=== PATIENT | female | born 1965 | race Two or more races ===

== ENCOUNTER 2016-11-21 21:34 | Emergency (ER) | payer OTHER ==
[~2016-11-21] VITALS: Ht 172.7 cm; Wt 90.7 kg
[2016-11-21] MEDS ORDERED: MORPHINE SULF INJ 2 MG/ML SYRINGE 1ML IV ONE (22:30)
[2016-11-21] MEDS ORDERED: ONDANSETRON HCL 4 MG/2 ML VIAL IV ONE (22:30)
[2016-11-21] MEDS ORDERED: NIFEdipine 10 MG CAP PO ONE (22:45)
[2016-11-21 22:57] LABS: Basophils # (auto) 0 uL; Basophils % (auto) 0.5 % (0.0-2.0); Eosinophils # (auto) 0.1 uL; Eosinophils % (auto) 1.4 % (0.0-7.0); Hemoglobin 15.1 g/dL (12.2-16.2); Lymphocytes # (auto) 2.4 uL; Lymphocytes % (auto) 26.2 % (10.0-50.0); Mean Corpuscular Hemoglobin 28.7 pg (28.0-32.0); Mean Corpuscular Hgb Conc. 34.3 g/dL (32.0-36.0); Mean Corpuscular Volume 83.8 fL (80.0-100.0); Mean Platelet Volume 10.8 fL (7.4-10.4); Monocytes # (auto) 0.5 uL; Monocytes % (auto) 5.1 % (0.0-12.0); Neutrophils % (auto) 66.8 % (37.0-80.0); Platelet Count (auto) 227 10^3/uL (140-450)
[2016-11-21 23:07] LABS: INR 0.94 (0.9-1.15); Partial Thromboplastin Time 26.9 sec (22.64-33.71); Prothrombin Time 10.2 sec (9.37-12.3)
[2016-11-21 23:08] LABS: Albumin 3.6 g/dL (3.4-5.0); Anion Gap 12 (5-15); Aspartate Aminotransferase 34 U/L (15-37); BUN/Creatinine Ratio 17.2; Blood Urea Nitrogen 21 mg/dL (7-18); Calcium 8.8 mg/dL (8.5-10.1); Carbon Dioxide 23 mmol/L (21-32); Chloride 102 mmol/L (98-107); GFR African American 60 mL/min; GFR Non-African American 49 mL/min; Glucose 358 mg/dL (74-106); Potassium 4.2 mmol/L (3.5-5.1); Sodium 137 mmol/L (136-145)
[2016-11-21 23:12] LABS: Alkaline Phosphatase 120 U/L (45-117); Bilirubin, Total 0.4 mg/dL (0.2-1.0)
[2016-11-21 23:15] LABS: Temperature: 22.9 C (20.0-25.0)
[2016-11-22] MEDS ORDERED: SODIUM CHLORIDE 0.9% 1,000 ML IV ONE (00:15)
[2016-11-22 01:54] VITALS: BP 149/91
== END 2016-11-22 01:56 | disposition home or self-care (01) ==
LOC: EDBD 21:34 → ER 21:39
DX: R56.9 Unspecified convulsions (principal); R55 Syncope and collapse; E86.0 Dehydration; E11.9 Type 2 diabetes mellitus without complications; E78.5 Hyperlipidemia, unspecified; I10 Essential (primary) hypertension; Z98.51 Tubal ligation status; R06.02 Shortness of breath
CPT/HCPCS: 36415; 70450; 71010; 72125; 80053; 83735; 83880; 84484; 85025; 85379; 85610; 85730; 93005; 96361; 96374; 99285; J2405; J7030

== ENCOUNTER 2019-12-01 09:40 | Emergency (ER) | payer OTHER ==
[~2019-12-01] VITALS: Ht 152.4 cm; Wt 72.6 kg
[~2019-12-01 09:40] MED LIST: ASPI81CH43 PO; AZIT250T8 PO; INSLANTI SC; INSLISPI SC; ISOS20TA56 PO; LISI40TA PO; LOSA-69 PO; MECL12.554 PO; METF-371 PO; METO-169 PO; MULT-228 PO; SIMV-8 PO
[2019-12-01] MEDS ORDERED: cloNIDine HCL 0.1 MG TAB ONE (09:51)
[2019-12-01] MEDS ORDERED: cloNIDine HCL 0.1 MG TAB PO ONE (10:00)
[2019-12-01] MEDS ORDERED: ACETAMINOPHEN 500 MG TAB PO ONE (11:15)
[2019-12-01 11:20] VITALS: BP 198/102
== END 2019-12-01 11:43 | disposition home or self-care (01) ==
LOC: ER 09:40
DX: S92.511A Displaced fracture of proximal phalanx of right lesser toe(s), initial encounter for closed fracture (principal); S76.011A Strain of muscle, fascia and tendon of right hip, initial encounter; S80.211A Abrasion, right knee, initial encounter; I10 Essential (primary) hypertension; E78.5 Hyperlipidemia, unspecified; Z98.51 Tubal ligation status; W01.0XXA Fall on same level from slipping, tripping and stumbling without subsequent striking against object, initial encounter; Y93.89 Activity, other specified; Y92.89 Other specified places as the place of occurrence of the external cause; Y99.8 Other external cause status
CPT/HCPCS: 73502; 73630

== ENCOUNTER 2022-07-14 17:29 | Inpatient (IN) | payer OTHER ==
[~2022-07-14] VITALS: Ht 170.2 cm; Wt 87.6 kg
[~2022-07-14 17:29] MED LIST changes: +ISOS20TA5 PO; -ISOS20TA56 PO; -LISI40TA PO; +LISI40TA11 PO; +MECL12.514 PO; -MECL12.554 PO; -METO-169 PO; +METO-289 PO
[2022-07-14] MEDS ORDERED: CLOPIDOGREL BISULFATE 75 MG TAB PO ONE (19:15)
[2022-07-14 20:02] LABS: Basophils # (auto) 0 10 ^3/uL (0-0.2); Basophils % (auto) 0.6 % (0.0-2.0); Eosinophils # (auto) 0.1 10 ^3/uL (0-0.8); Eosinophils % (auto) 0.9 % (0.0-7.0); Hematocrit 41.8 % (36.0-46.0); Hemoglobin 13.8 g/dL (12.2-16.2); Lymphocytes # (auto) 1.6 10 ^3/uL (0.4-5.4); Lymphocytes % (auto) 22.2 % (10.0-50.0); Mean Corpuscular Hemoglobin 28.2 pg (28.0-32.0); Mean Corpuscular Volume 85.2 fL (80.0-100.0); Monocytes # (auto) 0.4 10 ^3/uL (0-1.3); Monocytes % (auto) 5.5 % (0.0-12.0); Neutrophils # (auto) 5.2 10 ^3/uL (1.6-8.6); Neutrophils % (auto) 70.8 % (37.0-80.0); Nucleated Red Blood Cells % 0.2 %; Red Cell Distribution Width 14.8 % (11.8-14.3); White Blood Cell 7.3 10^3/uL (4.4-10.8)
[2022-07-14 20:23] LABS: Albumin 2.9 g/dL (3.4-5.0); BUN/Creatinine Ratio 17.7; Calcium 8.8 mg/dL (8.5-10.1); Potassium 3.8 mmol/L (3.5-5.1)
[2022-07-14 20:25] LABS: Bilirubin, Total 0.5 mg/dL (0.2-1.0); Total Protein 7.8 g/dL (6.4-8.2)
[2022-07-14 20:33] LABS: Urine Bacteria NONE SEEN /hpf (None Seen); Urine Blood Negative /uL (Negative); Urine Specific Gravity 1.014 (1.001-1.035); Urine WBC 1 /hpf (0 - 5)
[2022-07-14] MEDS ORDERED: LORazepam 2MG/ML-1ML VIAL IV PRN (21:15)
[2022-07-14] MEDS ORDERED: DEXTROSE (50%) 50ML SYRG IV PRN (21:30)
[2022-07-14] MEDS ORDERED: TEMAZEPAM 15 MG CAP PO PRN (21:30)
[2022-07-14 21:42] LABS: Alcohol, Urine < 3.0 mg/dL (0-10); Amphetamine Screen, Urine NEGATIVE (NEGATIVE); Barbiturate Scree,Urine NEGATIVE (NEGATIVE); Benzodiazephine Screen, Urine NEGATIVE (NEGATIVE); Cannabinoid Screen, Urine NEGATIVE (NEGATIVE); Cocaine Screen, Urine NEGATIVE (NEGATIVE); Opiate Scree,Urine NEGATIVE (NEGATIVE); Phencyclidine Screen, Urine NEGATIVE (NEGATIVE)
[2022-07-14] MEDS: hydrALAZINE HCL 25 MG TAB PO SCH (21:50)
[2022-07-14] MEDS: ONDANSETRON HCL 4 MG/2 ML VIAL IV PRN (23:11)
[2022-07-14] MEDS: cloNIDine HCL 0.1 MG TAB PO PRN (23:11)
[2022-07-14] MEDS: ACETAMINOPHEN 325 MG TAB PO PRN (23:12)
[2022-07-15] MEDS: ACCU-CHEK COMFORT CURVE STRIP VI SCH ×4 (00:42→18:00)
[2022-07-15] MEDS: InsuLIN REG 1unit/0.01ml Soln (100units/ml) SC SCH ×4 (00:44→19:11)
[2022-07-15 06:04] LABS: Basophils # (auto) 0 10 ^3/uL (0-0.2); Basophils % (auto) 0.5 % (0.0-2.0); Eosinophils # (auto) 0 10 ^3/uL (0-0.8); Eosinophils % (auto) 0.5 % (0.0-7.0); Hematocrit 39.7 % (36.0-46.0); Hemoglobin 13.2 g/dL (12.2-16.2); Lymphocytes # (auto) 1.8 10 ^3/uL (0.4-5.4); Lymphocytes % (auto) 27.4 % (10.0-50.0); Mean Corpuscular Hgb Conc. 33.2 g/dL (32.0-36.0); Mean Corpuscular Volume 84.4 fL (80.0-100.0); Monocytes # (auto) 0.4 10 ^3/uL (0-1.3); Monocytes % (auto) 5.4 % (0.0-12.0); Neutrophils # (auto) 4.4 10 ^3/uL (1.6-8.6); Neutrophils % (auto) 66.2 % (37.0-80.0); Red Cell Distribution Width 15.1 % (11.8-14.3); White Blood Cell 6.7 10^3/uL (4.4-10.8)
[2022-07-15 06:13] LABS: Albumin 2.8 g/dL (3.4-5.0); Calcium 8.4 mg/dL (8.5-10.1); Potassium 4.1 mmol/L (3.5-5.1)
[2022-07-15 06:18] LABS: Bilirubin, Total 0.5 mg/dL (0.2-1.0); Total Protein 7.1 g/dL (6.4-8.2)
[2022-07-15] MEDS: ISOSORBIDE DINITRATE 10 MG TAB PO SCH ×3 (07:28→18:53)
[2022-07-15] MEDS: hydrALAZINE HCL 25 MG TAB PO SCH ×3 (07:28→22:25)
[2022-07-15] MEDS: LOSARTAN POTASSIUM 50 MG TAB PO SCH (09:36)
[2022-07-15] MEDS: ATORVASTATIN 20 MG TAB PO SCH (09:37)
[2022-07-15] MEDS: PANTOPRAZOLE 40 MG TAB PO SCH (09:37)
[2022-07-15] MEDS ORDERED: ENOXAPARIN SOD 40 MG/0.4 ML SYRINGE SC SCH (10:00)
[2022-07-15] MEDS ORDERED: ASPirin 81 mg TAB PO SCH (10:00)
[2022-07-15 13:00] VITALS: BP 145/80
[2022-07-15] MEDS: ACETAMINOPHEN 325 MG TAB PO PRN (15:18)
[2022-07-15 16:08] VITALS: BP 145/80
[2022-07-15 17:00] VITALS: BP 164/86
[2022-07-15] MEDS ORDERED: hydrALAZINE HCL 20 MG/ML VL IV ONE (19:45)
[2022-07-15] MEDS: cloNIDine HCL 0.1 MG TAB PO PRN (19:51)
[2022-07-15] MEDS: ONDANSETRON HCL 4 MG/2 ML VIAL IV PRN (21:04)
[2022-07-15 22:00] VITALS: BP 149/61
[2022-07-15] MEDS: LORazepam 0.5 MG TAB PO PRN (22:25)
[2022-07-15] MEDS ORDERED: INSU1INJ19 SC (23:42)
[2022-07-15] MEDS ORDERED: INSU100I26 SC (23:42)
[2022-07-15] MEDS ORDERED: HYDR50TA15 PO (23:42)
[2022-07-15] MEDS ORDERED: LOSA-39 PO (23:42)
[2022-07-15] MEDS ORDERED: CLON0.1T PO (23:42)
[2022-07-16] MEDS: ACCU-CHEK COMFORT CURVE STRIP VI SCH ×2 (00:50→07:04)
[2022-07-16] MEDS: InsuLIN REG 1unit/0.01ml Soln (100units/ml) SC SCH ×2 (00:54→07:10)
[2022-07-16] MEDS: cloNIDine HCL 0.1 MG TAB PO PRN (02:15)
[2022-07-16 05:00] VITALS: BP 130/58
[2022-07-16 06:12] LABS: Basophils # (auto) 0 10 ^3/uL (0-0.2); Basophils % (auto) 0.1 % (0.0-2.0); Eosinophils # (auto) 0 10 ^3/uL (0-0.8); Eosinophils % (auto) 0.1 % (0.0-7.0); Hemoglobin 12.9 g/dL (12.2-16.2); Lymphocytes # (auto) 1.6 10 ^3/uL (0.4-5.4); Lymphocytes % (auto) 21.1 % (10.0-50.0); Mean Corpuscular Hemoglobin 27.8 pg (28.0-32.0); Mean Corpuscular Volume 84.1 fL (80.0-100.0); Monocytes # (auto) 0.5 10 ^3/uL (0-1.3); Monocytes % (auto) 6.7 % (0.0-12.0); Neutrophils # (auto) 5.3 10 ^3/uL (1.6-8.6); Red Blood Cells 4.63 10^6/uL (4.0-5.20); White Blood Cell 7.4 10^3/uL (4.4-10.8)
[2022-07-16 06:41] LABS: Calcium 8.8 mg/dL (8.5-10.1); Potassium 4.2 mmol/L (3.5-5.1)
[2022-07-16 06:45] LABS: BUN/Creatinine Ratio 17.2
[2022-07-16] MEDS: hydrALAZINE HCL 25 MG TAB PO SCH (07:04)
[2022-07-16] MEDS: ISOSORBIDE DINITRATE 10 MG TAB PO SCH (07:04)
[2022-07-16] MEDS: LORazepam 0.5 MG TAB PO PRN (09:11)
[2022-07-16] MEDS: ATORVASTATIN 20 MG TAB PO SCH (09:12)
[2022-07-16] MEDS: LOSARTAN POTASSIUM 50 MG TAB PO SCH (09:12)
[2022-07-16] MEDS: PANTOPRAZOLE 40 MG TAB PO SCH (09:12)
[2022-07-16] MEDS: ACETAMINOPHEN 325 MG TAB PO PRN (09:13)
[2022-07-16] MEDS ORDERED: ASPirin 81 mg TAB PO SCH (10:00)
== END 2022-07-16 11:08 | disposition left against medical advice (07) | DRG 45 ==
LOC: EDBD 17:29 → ER 17:29 → OVERFLOW 21:25 → TELE-WESTW 07-15 08:40 → WEST WING 07-15 16:49 → TELE-WESTW 07-15 22:56
PROVIDERS: ADMIT Nurse Practitioner; ATTEND Nurse Practitioner Acute Care
DX: I63.9 Cerebral infarction, unspecified (principal); I21.A1 Myocardial infarction type 2; I50.32 Chronic diastolic (congestive) heart failure; I11.0 Hypertensive heart disease with heart failure; G40.909 Epilepsy, unspecified, not intractable, without status epilepticus; E11.9 Type 2 diabetes mellitus without complications; E66.01 Morbid (severe) obesity due to excess calories; F41.9 Anxiety disorder, unspecified; Z53.29 Procedure and treatment not carried out because of patient's decision for other reasons; E78.5 Hyperlipidemia, unspecified; Z20.822 Contact with and (suspected) exposure to COVID-19; F17.200 Nicotine dependence, unspecified, uncomplicated; I25.10 Atherosclerotic heart disease of native coronary artery without angina pectoris; R47.02 Dysphasia; Z79.82 Long term (current) use of aspirin; Z86.73 Personal history of transient ischemic attack (TIA), and cerebral infarction without residual deficits; Z79.899 Other long term (current) drug therapy; Z79.4 Long term (current) use of insulin; Z88.5 Allergy status to narcotic agent; Z98.51 Tubal ligation status; Z68.30 Body mass index [BMI] 30.0-30.9, adult
CPT/HCPCS: 36415; 70450; 70551; 71045; 80048; 80053; 80307; 81001; 82962; 83036; 84484; 85025; 87426; 93306; 93886; 95819; G0378; J1815; J2405

== ENCOUNTER 2023-02-16 17:55 | Emergency (ER) | payer OTHER ==
[~2023-02-16] VITALS: Ht 152.4 cm; Wt 79.0 kg
[~2023-02-16 17:55] MED LIST changes: +AZIT-81 PO; -AZIT250T8 PO; +CLON0.1T PO; +HYDR-4297 PO; +INSU100I26 SC; +INSU1INJ19 SC; -LISI40TA11 PO; +LISI40TA16 PO; -LOSA-69 PO; +LOSA100T58 PO; +LOSA50TA46 PO; -MECL12.514 PO; +MECL1TAB31 PO; -SIMV-8 PO; +SIMV20TA20 PO
[2023-02-16 18:52] VITALS: BP 111/77; PULSE 98; RESP 18; TEMP 98; O2SAT 98
[2023-02-16] MEDS ORDERED: ACETAMINOPHEN 325 MG TAB PO ONE (19:15)
== END 2023-02-16 19:59 | disposition home or self-care (01) ==
LOC: EDUNIT# 17:55 → EDBD 17:55 → ER 17:55
DX: M54.50 Low back pain, unspecified (principal); M25.532 Pain in left wrist; E78.5 Hyperlipidemia, unspecified; I10 Essential (primary) hypertension; Z98.51 Tubal ligation status; Z86.73 Personal history of transient ischemic attack (TIA), and cerebral infarction without residual deficits; Z88.6 Allergy status to analgesic agent; V43.62XA Car passenger injured in collision with other type car in traffic accident, initial encounter; Y93.89 Activity, other specified; Y92.89 Other specified places as the place of occurrence of the external cause; Y99.8 Other external cause status
CPT/HCPCS: 72100; 73110